=== PATIENT | female | born 1950 | race Caucasian/White ===

== ENCOUNTER 2018-02-19 07:43 | Emergency (ER) | payer OTHER ==
[~2018-02-19] VITALS: Ht 170.2 cm; Wt 53.1 kg
[2018-02-19 07:54] VITALS: BP 131/77
[2018-02-19] MEDS ORDERED: KETOROLAC TROMETH 60MG/2ML VIAL IM ONE (08:45)
== END 2018-02-19 09:27 | disposition home or self-care (01) ==
LOC: ER 07:43
DX: S29.012A Strain of muscle and tendon of back wall of thorax, initial encounter (principal); M50.30 Other cervical disc degeneration, unspecified cervical region; J44.9 Chronic obstructive pulmonary disease, unspecified; Z88.8 Allergy status to other drugs, medicaments and biological substances
CPT/HCPCS: 72040; 96372; 99284; J1885